=== PATIENT | male | born 1985 | race Caucasian/White ===

== ENCOUNTER 2021-06-24 15:26 | Emergency (ER) | payer SELFPAY ==
[2021-06-24 15:29] VITALS: BP 101/67
--- NOTE | 2021-06-24 15:37 | NUR ---
PT UNCOOPERATIVE W/ DR KING'S EXAM. PT INTERMITTENTLY YELLING OUT. WHEN ASKED IF PT IS DRUNK OR ANGRY, PT REPLIED "I'M FUCKING PISSED!" PT YELLING ABOUT TRUMP. SIDE RAILS UP X2.
--- NOTE | 2021-06-24 16:22 | NUR ---
PER ABEL CARRERA, PT WAS THROWING THINGS IN THE ROOM; PT ESCORTED TO EXIT.
== END 2021-06-24 16:25 | disposition left against medical advice (07) ==
LOC: ED 16:16
DX: F19.159 Other psychoactive substance abuse with psychoactive substance-induced psychotic disorder, unspecified (principal); F41.9 Anxiety disorder, unspecified
CPT/HCPCS: 99283